=== PATIENT | female | born 1990 | race Caucasian/White ===

== ENCOUNTER → 2025-05-31 13:55 | Outpatient (BNVA) | payer MEDICAID, SELFPAY | PROVIDERS: Visit Provider Internal Medicine | DX: F12.90 Cannabis use, unspecified, uncomplicated (principal); F15.90 Other stimulant use, unspecified, uncomplicated; F11.90 Opioid use, unspecified, uncomplicated; Z51.81 Encounter for therapeutic drug level monitoring; Z79.899 Other long term (current) drug therapy | CPT/HCPCS: 80307 ==

== ENCOUNTER → 2025-05-31 13:55 | Outpatient (AMB) | payer MEDICAID, SELFPAY ==
--- OUTSIDE RECORDS SUMMARY | 2016-11-26 09:36 | XMS_ITS | Continuity of Care Document ---
Author Organization [facility] Address [address] [place] [address] Phone Care Team Providers Care Forensic Anthropologist Name Role Phone Unavailable Unavailable Unavailable Allergies, Adverse Reactions, Alerts Substance Reaction Status Criticality No Known Allergies Resolved No Inform ation Problems Condition Type Effective Dates (start - stop) Clini brissa Status Comments No Known Problems Procedures Procedure Date Psychotherapy, 30 Minutes With Patient J OFFICE/OUTPATIENT VISIT, EST OFFICE/OUTPATIENT VISIT, EST GLOBAL VISIT GLOBAL VISIT HIV TEST REFUSED OFFICE/OUTPATIENT VISIT, EST GLOBAL VISIT URINE TEST OFFICE/OUTPATIENT VISIT, NEW Advance Directives Directive Yes / No Effective Date File Name No Information Encounters Encounter Description Practice Location Reason(s) For Visit Diagnoses Date Provider Providers Copied on Encounter [facility], [address] [place] [address], [facility], tel:[phone] [facility] Behavioral Health Behavioral Health Disposition (chief complaint) No Information 7 No Information Psychotherap y, 30 Minutes With Patient [facility], [address] [place] [address], [facility], tel:[phone] [facility] Behavioral Health Consult/ Engagement into treatment (chief complaint) Opioid use, unspecified, uncomplicated Alcohol abuse, uncomplicated Anxiety disorder, unspecifiedAd justment disorder with depressed mood 7 No Information OFF[place] [facility] [address] [place] [address], [address], [place] tel:[phone] [facility] Adult Medicine drug screen (chief complaint) Routine medical examBody mass index (BMI) 27.0-27.9, adult 7 No Information OFFICE/OUTPA [place]ENT [place], [facility] [address] [place], [address], [place] tel:[phone] [facility] Adult Medicine Establish of Care (chief complaint) Body mass index (BMI) 28.0-28.9, adultHepatiti s C virus infection, unspecified chronicityScr eening for lipid disordersAnxi ety disorder, unspecified typeOtitis externa of right ear, unspecified chronicity, unspecified type 6 [facility]. [address] [facility], [id number] [address] [place] [address], [address], [place]. tel:[phone] [facility], [address] [place] [address], [address], [place] tel:[phone] [facility] pnpe (chief complaint) Dietary surveillance and counselingSup ervision of other normal 5 No Information [facility], [address] [place] [address], [address], [place] tel:[phone] [facility] PNR (chief complaint) Supervision of other normal pregnancyDrug abuse in remission 5 No Information OFFICE[place]OUTPA [place], [facility] [address] [place], [address], [place] tel:[phone] [facility] Adult Medicine HEP C (chief complaint) Hepatitis C - 5 No Information [facility], [address] [place], [address], [place] tel:[phone] [facility] confirmation (chief complaint) Supervision of other normal pregnancyDrug abuse in remissionHepa titis C 3- 5 No Information OFFICE/OUTPA TIENT VISIT, [facility], [address] [place], [address], [place] tel:[phone] [facility] Test (chief complaint) examination or test, positive resultPregnan t state, incidental 5 No Information Family History Family Member Type Diagnosis Age At Onset Mother Problem (finding) multiple sclerosis Father Problem (finding) hypertension Payers Payer name Insurance type Covered constitution party ID Prashant aguilar(s) AMISHA Luna [id number] Social History Type Description Quantity Date Captured Comments Alcohol Use Details Unknown Caffeine Use Details Unknown Tobacco Use Status Smoking Status No Information Sex Female Sexual Orientation Straight or heterosexual Chief Complaint And Reason For Visit From encounter dated '11/26/2016 13:36'. Behavioral Health Disposition (chief complaint). Description: NS/NC for intake, no contact for over30 days, application INACTIVATED Reason For Referral Reason For Referral No Information Plan Of Treatment Date Type Action Status Goal Tobacco cessation counseling completed Goal Dietary management education , guidance, and counseling completed Goal Dietary management education , guidance, and counseling completed Goal Tobacco cessation counseling completed Goal Lifestyle education regardin g diet completed History Of Present Illness Encounter Date Complaint History Of Prese nt Illness Behavioral Health Disposition NS /NC for intake, no contact for over 30 days, application INACTIVATED Consult/ Engagement into treatdc nt Client presented for consult/ engagement into treatment. drug screen The symptoms beg an on 10/01/2016 and generally lasts 1 Day. The symptoms are reported as being none. The symptoms occur none. The location is general. She was sent from [facility] for a random drug screen. She has no other concerns at this time. Establish of Care 26 year old zurdo marichuy presents to clinic for establishment of care. Pt. states she has a history of anxiety disorder and would like to see [facility] for the management of her disorder.Patient states she was seen by [facility] in [place] from [phone].Patient also states she has a history of Hep C and would like to re-start her therapy. Pt. states she was last treated over a years ago.Pt. has no health complaints today and states she feels in overall good health today.After reviewing her chart it looks like she was last seen by Dr. Gan in 11/2014 for Hep C but never returned to any of her appointments.Pt. states she has a history of heroin abuse but has been clean for the past 6 months per patient. pnpe PNR HEP C Pt has history o f hepatitis C, pt refers that she had a positive antibody testing. Pt is currently at 9 weeks. Pt denies any history of jaundice, hepatic encephalopathy or GI bleeding. Pt has not been treated for hepatitis C. HCV RNA VL is unknown, Pt interested in having information for treatment after if it is necessary confirmation Test LMP was 09/26/19 15. Patient was not taking control pills at or around the time of her LMP. The patient had 2 previous pregnancies. Pertinent negatives include anorexia, bleeding, breast tenderness, constipation, edema, fatigue, fever, headache, heartburn, irritability, nausea, pelvic pain, spotting, urinary difficulty, vaginal discharge, vomiting. Additional information: Presents today as a walk-in to establish care, Unplanned but accepting of , FOB aware, denies any abd pain or VB, currently in rehab at [facility] for substance abuse, clean x 2 monthsRecent diagnosis of Hep C at [facility], no tx initiated. Functional Status Date Functional Assessmen t No Information Instructions Date Instruction Additional Infor dwight Laboratory studies were ordered today. Please go to the lab to have your blood drawn. Related to Routine medical exam Weight monitoring Related to Bod y mass index (BMI) 27.0-27.9, adult Dietary management e ducation, guidance, and counseling Related to Body mass index (BMI) 27.0-27.9, adult Ear drops as prescri bed.Patient should lie with affected ear upward and remain in this position for 60 seconds following application. Related to Otitis externa of right ear, unspecified chronicity, unspecified type You have been referr ed to our behavioral health team. Related to Anxiety disorder, unspecified type Laboratory studies w ere ordered today. Please go to the lab to have your blood drawn. Related to Screening for lipid disorders You have been referr ed to our Hep C clinic.Laboratory studies were ordered today. Please go to the lab to have your blood drawn. Related to Hepatitis C virus infection, unspecified chronicity Dietary management e ducation, guidance, and counseling Related to Body mass index (BMI) 28.0-28.9, adult Weight monitoring Related to Bod y mass index (BMI) 28.0-28.9, adult Lifestyle education regarding di et Related to Dietary surveillance and counseling illicit / recreational drugs use of any medicatio ns (including supplements, vitamins, herbs, OTC drugs) smoking counseling alcohol tobacco (ask, advise , assess, assist and arrange) travel environmental / work hazards influenza vaccine indications for ultrasound exercise sexual activity domestic violence seat belt use childbirth classes / hospital facilities nutrition and weight gain counseling, special diet HIV and other routine t ests toxoplasmosis precau tions (cats / raw meat) risk factors identif ied by history anticipated course of c are -Reviewed precautiosn (avoid NSAIDs, excessive intake caffeine, fish with high mercury content, avoid EtOH, cigs, repetative exposure to cleaning solutions or radiation.)-SAB precautions given Related to Supervision of other normal Assessments Type Assessment Date No Information Patient Care Teams Name Effective Dates (start - stop) Status Members No Information
[2025-05-31 14:12] VITALS: PULSE 105; O2SAT 98; BMI 32.3
--- NOTE | 2025-05-31 14:12 | MHC.OFFVIS ---
Vital Signs 05/31/25 14:12 Height 5 ft 6 in Weight 90.718 kg BMI 32.3 Pulse 105 H Pulse Source Pulse Oximeter Pulse Oximetry (%) 98 Oxygen Delivery Method Room Air Intake Visit Reasons: MAT Intake Allergies No Known Allergies Allergy (Verified 05/31/25 14:13) Physical Exam Vital Signs: Last Vital Signs Pulse 105 H 05/31/25 14:12 Pulse Ox 98 05/31/25 14:12 Oxygen Delivery Method Room Air 05/31/25 14:12 BMI result Body Mass Index 32.3 Results AMB 14 Panel Urine Drug Screen Urine Marijuana (THC) Positive Last Edit by Scar Still CMA on 05/31/25 14:36 Urine Cocaine Negative Last Edit by Scar Still CMA on 05/31/25 14:36 Urine Morphine Negative Last Edit by Scar Still CMA on 05/31/25 14:36 Urine Methamphetamine Negative Last Edit by Sacr Still CMA on 05/31/25 14:36 Urine Amphetamine Positive Last Edit by Scar Still CMA on 05/31/25 14:36 Urine Benzodiazepine Negative Last Edit by Scar Still CMA on 05/31/25 14:36 Urine Barbiturates Negative Last Edit by Scar Still CMA on 05/31/25 14:36 Urine Methadone Negative Last Edit by Scar Still CMA on 05/31/25 14:36 Urine Buprenorphine Positive Last Edit by Scar Still CMA on 05/31/25 14:36 Urine Tricyclic Antidepressant Negative Last Edit by Scar Still CMA on 05/31/25 14:36 Urine MDMA Negative Last Edit by Scar Still CMA on 05/31/25 14:36 Urine Oxycodone Negative Last Edit by Scar Still CMA on 05/31/25 14:36 Urine Phencyclidine Negative Last Edit by Scar Still CMA on 05/31/25 14:36 Urine Propoxyphene Negative Last Edit by Scar Still CMA on 05/31/25 14:36 Assessment & Plan Assessment & Plan Orders: Orders AMB 14 Panel Urine Drug Screen Today Z51.81 - Encounter for therapeutic drug level monitoring Coding
--- OUTSIDE RECORDS SUMMARY | 2025-05-31 14:25 | XMS_ITS | Encounter Summary ---
Author Organization [employer] Address [address] [place] [address] Care Team Providers Care Senior Bioinformatics Scientist Name Role Phone Sharon Shaw PA-C Primary Care Provider [phone] Encounter Details Date Type Department Care Team (Latest Contact Info) Description 04/15/2025 Results Follow-Up [address] [address] Sharon Shaw PA-C [address] [place] [address] [phone] CBC auto differential, Comprehensive Metabolic Panel, Vitamin B12/Folate, Serum Panel, Additional followed-up results: 2 Social History Tobacco Use Types Packs/Day Years Used Date Smoking Tobacco: Every Day Cigarettes 0.5 21.7 Started: 2003 Smokeless Tobacco: Never Alcohol Use Standard Drinks/Week Comments Not Currently 0 (1 standard drink = 0.6 oz pur e alcohol) Alcohol Answer Date Recorded How often do you have a drink containing alcohol ? 1 04/12/2025 How many drinks containing a lcohol do you have on a typical day when you are drinking? 1 04/12/2025 How often do you have six or more drinks on one occasion? 4 04/12/2025 Housing Stability Answer Date Recorded What is your housing situation today? I have yasmine del castillo 04/12/[address] you li ve. Do you have problems with any of the following? None of the above 04/12/2025 Food Insecurity Answer Date Recorded Within the past 12 months, y ou worried that your food would run out before you got money to buy more: Never True 04/12/2025 Within the past 12 months,th e food you bought just didn't last and you didn't have enough money to get more: Never True Transportation Answer Date Recorded In the past 12 months, has l ack of transportation kept you from medical appts, meetings, work or from getting things needed for daily living? No 04/12/2025 Intimate Partner Violence Answer Date R ecorded Within the last year, have y ou been afraid of your partner or ex-partner? 2 04/12/2025 Within the last year, have y ou been humiliated or emotionally abused in other ways by your partner or ex-partner? 2 Within the last year, have y ou been kicked, hit, slapped, or otherwise physically hurt by your partner or ex-partner? 2 04/12/2025 Within the last year, have y ou been raped or forced to have any kind of sexual activity by your partner or ex-partner? 2 04/12/2025 Utilities Answer Date Recorded In the past 12 months, has t he electric, gas, oil or water company threatened to shut off services in your home? No 04/12/2025 Depression Answer Date Recorded Patient Health Questionnaire-2 Score 0 04/12/2025 Internet Access Answer Date Recorded Internet Access Q1 Yes 04/12/2025 Internet Access Q2 Not on file 04/12/2025 Comments No Sex and Gender Information Value Date Recorded Sex Assigned at Female 04/10/2025 2:14 PM EDT Legal Sex Female 2:11 PM EDT Gender Identity Female 04/10/2025 2:14 PM EDT Sexual Orientation Bisexual 04/10/2025 2: 14 PM EDT documented as of this encounter Plan of Treatment Scheduled Orders Name Type Priority Associated Diagnoses Orde r Schedule TSH with Reflex to Free T4 Lab Routine Hypothyroidism, unspecified type Expected: 04/22/2025, Expires: 04/22/2026 Thyroid Peroxidase And Thyroglobulin Antibodies Lab Routine Hypothyroidism, unspecified type Expected: 04/22/2025 (Approximate), Expires: 04/22/2026 documented as of this encounter Visit Diagnoses Diagnosis Hypothyroidism, unspecified type- Primary documented in this encounter Care Teams Senior Bioinformatics Scientist Relationship Specialty Start Date End Date Sharon Shaw PA-C [address] [place] [address] PCP - General Family Medicine 04/10/25 documented as of this encounter
--- OUTSIDE RECORDS SUMMARY | 2025-05-31 14:25 | XMS_ITS | Encounter Summary ---
Author Organization [employer] Address [address] [place] [address] Care Team Providers Care Consultant Name Role Phone Sharon Shaw PA-C Primary Care Provider [phone] Encounter Details Date Type Department Care Team (Late st Contact Info) Description 05/28/[address] [address] Sharon Shaw PA-C [address] [place] [address] Hypothyroidism, unspecified type Social History Tobacco Use Types Packs/Day Years [...] PM EDT documented as of this encounter Miscellaneous Notes * Telephone Encounter - Cindy Pleitez MA - 05/29/2025 8:32 AM EDT RX refill request sent to provider. * Telephone Encounter - Cindy Pleitez MA - 05/29/2025 8:31 AM EDT PCP: Sharon Shaw PA-C Last in-person office visit: 04/17/2025 Sharon Shaw PA-C Lab Results Component Value Date BUN 04/12/2025 CREATININE 0.88 04/12/2025 K 4.2 04/12/2025 TSH 4.88 (H) 04/17/2025 Assessment: [] Protocol passed [] Lab due [] Appointment due Plan: [] Please refill for 30 days [] Lab [] BMP [] TSH [] A1C [] Appointment due: No future appointments. Comments: * Telephone Encounter - Fariba Avina - 05/28/2025 4:54 PM EDT Prescribing Provider: YUDI Andrade Medication Name: levothyroxine (Synthroid) 25 MCG tablet 5 Days or More Supply: Yes Pharmacy: [facility] ([address] [place] [address]) documented in this encounter Plan of Treatment Not on file documented as of this encounter Visit Diagnoses Diagnosis Hypothyroidism, unspecified type documented in this encounter Care Teams Consultant Relationship Specialty Start Date End Date Sharon Shaw PA-C [address] [place] [address] PCP - General Family Medicine 04/10/25 documented as of this encounter
--- OUTSIDE RECORDS SUMMARY | 2025-05-31 14:25 | XMS_ITS | Encounter Summary ---
Author Organization [employer] Address [address] [place] [address] Care Team Providers Care Senior Java Architect Name Role Phone Sharon Shaw PA-C Primary Care Provider [phone] Encounter Details Date Type Department Care Team (Late st Contact Info) Description 05/30/[address] [address] Sharon Shaw PA-C [address] [place] [address] Social History Tobacco Use Types Packs/Day Years [...] Telephone Encounter - Cindy Pleitez MA - 05/30/2025 3:29 PM EDT RX refill request sent to provider. * Telephone Encounter - Cindy Pleitez MA - 05/30/2025 3:28 PM EDT PCP: Sharon Shaw PA-C Last in-person office visit: 04/17/2025 Sharon Shaw PA-C Lab Results Component Value Date BUN 04/12/2025 CREATININE 0.88 04/12/2025 K 4.2 04/12/2025 TSH 4.88 (H) 04/17/2025 Assessment: [x] Protocol passed [] Lab due [] Appointment due Plan: [x] Please refill for 30 days [] Lab [] BMP [] TSH [] A1C [] Appointment due: No future appointments. Comments: * Telephone Encounter - Fariba Avina - 05/30/2025 2:38 PM EDT Prescribing Provider: historical provider Medication Name: Xarelto 20 MG tablet 5 Days or More Supply: No Pharmacy: [facility] ([address] [place] [address]) documented in this encounter Plan of Treatment Not on file documented as of this encounter Visit Diagnoses Not on filedocumented in this encounter Care Teams Senior Java Architect Relationship Specialty Start Date End Date Sharon Shaw PA-C [address] [place] [address] PCP - General Family Medicine 04/10/25 documented as of this encounter
--- OUTSIDE RECORDS SUMMARY | 2025-05-31 14:25 | XMS_ITS | Encounter Summary ---
Author Organization [employer] Address [address] [place] [address] Care Team Providers Care Photofinishing Laboratory Worker Name Role Phone Sharon Shaw PA-C Primary Care Provider [phone] Encounter Details Date Type Department Care Team (Late st Contact Info) Description 04/12/2025 Orders Only [facility] [address] [place], [place] [id number] Provider, Not In System Social History Tobacco Use Types Packs/Day Years [...] PM EDT documented as of this encounter Functional Status * Over the past 2 weeks, how often have you been bothered by any of the following problems? Question Answer Date of Assessment Author Little interest or pleasure in doing things Not at all 04/12/2025 8:09 AM EDT Cindy Pleitez MA Feeling down, depressed, or hopeless Not at all 04/12/2025 8:09 AM EDT Cindy Pleitez MA Patient Health Questionnaire -2 Score 0 04/12/2025 8:09 AM EDT Cindy Pleitez MA documented as of this encounter Plan of Treatment Not on file documented as of this encounter Procedures Procedure Name Priority Date/Time Associated Diagnosis Comments CT HEAD/BRAIN VENOGRAM Routine 03/15/2025 10:10 AM EDT documented in this encounter Results * CT HEAD/BRAIN VENOGRAM (03/15/2025 10:10 AM EDT) Anatomical Region Laterality Modality Computed Tomogra phy us Not In System Provider IMG CT PROCEDURES Edited Result - Final documented in this encounter Visit Diagnoses Not on filedocumented in this encounter Care Teams Photofinishing Laboratory Worker Relationship Specialty Start Date End Date Sharon Shaw PA-C [address] [place] [address] PCP - General Family Medicine 04/10/25 documented as of this encounter
--- OUTSIDE RECORDS SUMMARY | 2025-05-31 14:25 | XMS_ITS | Clinical Summary ---
Author Organization [facility] Address [address] [facility] [place] [address] Care Team Providers Care Risk And Insurance Consultant Name Role Phone Sharon Shaw PA-C Primary Care Provider [phone] Allergies No known active allergies Medications Adderall XR 20 MG 24 hr capsule Take 20 mg by mouth in the morning. 03/18/20 25 Active Suboxone 8-2 MG SL film 04/01/20 25 Active predniSONE (Deltasone) 20 MG tablet 04/04/20 25 Active lamoTRIgine (LaMICtal) 100 MG tablet Take 100 mg by mouth 2 times daily. 04/08/20 25 Active topiramate 50 MG tablet Take 50 mg by mouth 2 times daily. 03/25/20 25 Active citalopram (CeleXA) 20 MG tablet Take 30 mg by mouth Once per day. 04/08/20 25 Active prazosin (Minipress) 1 MG capsule Take 2 mg by mouth at bedtime. 04/08/20 25 Active QUEtiapine (SEROquel) 25 MG tablet Take 75 mg by mouth at bedtime. 03/18/20 25 Active senna (Senokot) 8.6 MG tablet Take 2 tablets by mouth if needed at bedtime. 03/25/20 25 Active melatonin 5 MG tablet Take 5 mg by mouth if needed at bedtime. 04/01/20 25 Active hydrOXYzine HCl (Atarax) 25 MG tablet 04/02/20 25 Active polyethylene glycol, PEG, 3350 (Glycolax) 17 GM/SCOOP powder Take 17 g by mouth if needed each day. 03/25/20 25 Active fluticasone (Flonase) 50 MCG/ACT nasal spray Administer 1 spray into each nostril if needed each day for allergies. 03/26/20 25 Active acetaminophen (Tylenol) 325 MG tablet Take 650 mg by mouth every 4 (four) hours if needed for mild pain. 04/01/20 25 Active nicotine polacrilex (Commit) 2 MG lozenge Dissolve 1 lozenge in the mouth every 1 (one) hour if needed for smoking cessation. 04/10/20 25 Active docusate sodium (Colace) 100 MG capsule Take 1 capsule by mouth if needed in the morning and at bedtime for constipation. 01/25/20 25 Active naloxone (Narcan) 4 mg/0.1 mL nasal spray Administer 1 each into affected nostril(s) if needed for opioid reversal or respiratory depression. 01/12/20 25 Active nicotine (Nicoderm, Step 1) 21 MG/24HR patch Place 1 patch on the skin 1 (one) time each day at the same time. 04/01/20 25 Active gabapentin (Neurontin) 300 MG capsule Take 300 mg by mouth Once per day. 04/11/20 25 Active QUEtiapine (SEROquel) 50 MG tablet Take 50 mg by mouth in the morning and 50 mg at noon and 50 mg in the evening. Active QUEtiapine (SEROquel) 100 MG tablet Take 100 mg by mouth in the morning and 100 mg at noon and 100 mg in the evening. Active Multiple Vitamins-Haines als (Womens Multivitamin) tablet Take 1 tablet by mouth Once per day. Active ketoconazole (NIZOral) 2 % shampooIndicat ions:Rash Apply topically 2 (two) times a week. 120 mL 1 04/15/20 25 Active levothyroxine (Synthroid) 25 MCG tabletIndicati ons:Hypothyroi dism, unspecified type Take 1 tablet (25 mcg) by mouth before breakfast. Dose depends on labs--may continue for now, please come get labs rechecked as discussed with PCP at visit. 30 tablet 05/29/20 25 025 Active Xarelto 20 MG tablet Take 1 tablet (20 mg) by mouth with evening meal. 90 tablet 05/30/20 25 025 Active Xarelto 20 MG tablet Take 20 mg by mouth with evening meal. 04/08/20 25 09/04/2 025 Discontinued(R eorder (will not trigger notification to Pharmacy)) clotrimazole (Lotrimin) 1 % creamIndicatio ns:Rash Apply topically 2 times daily for 28 days. 30 g 2 04/12/20 25 025 levothyroxine (Synthroid) 25 MCG tabletIndicati ons:Hypothyroi dism, unspecified type Take 1 tablet (25 mcg) by mouth before breakfast. 30 tablet 11 04/22/20 25 025 Discontinued(R eorder (will not trigger notification to Pharmacy)) Active Problems Problem Noted Date Diagnosed Date Alcohol use disorder 04/12/2025 Assessment & Plan (04/12/2025 10:35 AM EDT): - History of alcohol use disorder with recent sobriety. In treatment program. - Monitor sobriety progress. Stimulant use disorder 04/12/2025 Assessment & Plan (04/12/2025 10:35 AM EDT): - History of stimulant use disorder, currently in recovery. In treatment program. - Continue monitoring recovery progress. History of opioid abuse 04/12/2025 Assessment & Plan (04/12/2025 10:35 AM EDT): - History of opioid abuse, currently on suboxone. In treatment program. - Continue suboxone treatment. Encounters Date Type Department Care Team Description 05/30/[address] [phone] Sharon Shaw PA-C 05/28/[address] [phone] Sharon Shaw PA-C Hypothyroidism, unspecified type 05/06/[address] [phone] Sharon Shaw PA-C 04/17/2025 9:40 AM EDT Office Visit [address] [address] [place], Sharon, PA-C Itching in the vaginal area (Primary Dx); Dysuria; History of blood clots 04/15/2025 Results Follow-Up [address] [address] Sharon Shaw PA-C CBC auto differential, Comprehensive Metabolic Panel, Vitamin B12/Folate, Serum Panel, Additional followed-up results: 2 04/12/2025 8:00 AM EDT Office Visit [address] [phone] Sharon Shaw PA-C Alcohol use disorder (Primary Dx); Stimulant use disorder; History of opioid abuse (CMS/HCC); Rash; Hair loss; Encounter to establish care; Screening for depression 04/12/2025 Orders Only [facility] [address] [place] [phone] Provider, Not In System 04/12/[address] [phone] Sharon Shaw PA-C from Last 3 Months Social History Tobacco Use Types Packs/Day Years Used Date Smoking Tobacco: Every Day Cigarettes 0.5 21.7 Started: 2003 Smokeless Tobacco: Never Tobacco Cessation:Ready to Q uit: Not Asked; Counseling Given: Not Answered Alcohol Use Standard Drinks/Week Comments Not Currently [...] Q2 Not on file 04/12/2025 Comments No Intention Date Recorded No desire to become (finding) 0 04/12/2025 Sex and Gender Information Value Date Recorded Sex Assigned at Female 04/10/2025 2:14 PM EDT Legal Sex Female 2:11 PM EDT Gender Identity Female 04/10/2025 2:14 PM EDT Sexual Orientation Bisexual 04/10/2025 2: 14 PM EDT Last Filed Vital Signs Vital Sign Reading Time Taken Comments Blood Pressure 112/70 04/17/2025 9:52 AM EDT Pulse 82 04/17/2025 9:52 AM EDT Temperature - - Respiratory Rate - - Oxygen Saturation 98% 04/17/2025 9:52 AM EDT Inhaled Oxygen Concentration - - Weight 88.7 kg (195 lb 8 oz) 04/12/2025 8:02 AM EDT Height 167.6 cm (5' 6 ) 04/12/2025 8:02 AM EDT Body Mass Index 31.55 04/12/2025 8:02 AM EDT Plan of Treatment Health Maintenance Due Date Last Done Comments Dental Oral Exam 1991 Dental Prophylaxis 1991 Dental X-Ray: Bitewings 1991 Dental X-Ray: Full Mouth 1991 HIV Screening 1991 Lipid Panel 1991 Disability Screening 1991 HPV Vaccines (1 - 3-dose series) 2006 Hepatitis C Screening 2009 DTaP/Tdap/Td Vaccines (1 - Tdap) 2010 Hepatitis B Vaccines (1 of 3 - 19+ 3-dose series) 2010 Pneumococcal Vaccine: Pediatrics (0 to 5 Years) and At-Risk Patients (6 to 49) Years (1 of 2 - PCV) 2010 Pap Smear 2012 Cervical Cancer Screening 2021 HPV/Cotest 2021 COVID-19 Vaccine (1 - 2023-2 5 season) 2025 Influenza Vaccine (#1) 2025 Alcohol/Substance Use Screening 04/12/2026 04/12/2025 Depression Screening 04/12/2026 04/12/2025, 04/12/2025 Family Planning (PISQ) 04/12/2026 04/12/2025 SDOH Screening 04/12/2026 04/12/2025 Tobacco Screening 04/17/2026 04/17/2025 Zoster Vaccines (1 of 2) 2041 RSV Patients and Patients Aged 60 years or older (1 - 1-dose 75+ series) 2066 HIB Vaccines Aged Out No longer eligi ble based on patient's age to complete this topic Hepatitis A Vaccines Aged Out No long er eligible based on patient's age to complete this topic IPV Vaccines Aged Out No longer eligi ble based on patient's age to complete this topic Meningococcal B Vaccine Aged Out No l onger eligible based on patient's age to complete this topic Meningococcal Vaccine Aged Out No hina jerry eligible based on patient's age to complete this topic RSV under 20 months Aged Out No longe r eligible based on patient's age to complete this topic Rotavirus Vaccines Aged Out No longer eligible based on patient's age to complete this topic Procedures Procedure Name Priority Date/Time Associated Diagnosis Comments T4, FREE Routine 04/17/2025 10:17 AM EDT TSH W/REFLEX TO FT4 Routine 04/17/2025 1 0:17 AM EDT Hair loss POCT URINALYSIS DIPSTICK Routine 04/17/2025 10:16 AM EDT Itching in the vaginal area SURESWAB(R) ADVANCED VAGINITIS PLUS, TMA Routine 04/17/2025 10:00 AM EDT Itching in the vaginal area CULTURE, URINE, ROUTINE Routine 04/17/2025 10:00 AM EDT Dysuria Itching in the vaginal area COMPREHENSIVE METABOLIC PANEL Routine 04/12/2025 8:42 AM EDT Rash CBC WITH AUTO DIFFERENTIAL Routine 04/12/2025 8:42 AM EDT Rash VITAMIN B12/FOLATE, SERUM PANEL Routine 04/12/2025 8:41 AM EDT Alcohol use disorder Rash CT HEAD/BRAIN VENOGRAM Routine 10:10 AM EDT from Last 3 Months Results * (ABNORMAL) TSH with Reflex to Free T4 (04/17/2025 10:17 AM EDT) TSH w/Reflex to FT4 4.88(H) mIU/L [facility] Comment: Reference Range > or = 20 Years 0.40-4.50 Ranges First trimester 0.26-2.66 Second trimester 0.55-2.73 Third trimester 0.43-2.91 Blood Venous blood specimen / Unknown 04/17/2025 10:17 AM EDT 04/17/2025 10:18 AM EDT Narrative [facility] - 04/18/2025 6:56 PM EDT FASTING:NO FASTING: NO us Sharon Shaw PA-C LAB BLOOD ORDERABLES Final Re sult [facility] [address], [place] [address] [facility] [address] [place] [address] * (ABNORMAL) T4, Free (04/17/2025 10:17 AM EDT) T4, Free 0.7(L) 0.8 - 1.8 ng/dL [facility] 04/17/2025 10:1 7 AM EDT 04/17/2025 10:18 AM EDT Narrative [facility] - 04/18/2025 6:56 PM EDT FASTING:NO FASTING: NO us Sharon Shaw PA-C LAB BLOOD ORDERABLES Final Re sult Performing Organization Address [facility] de Phone Number [address], [place] [address] [facility] [place] [facility] [address] [place] [address] * POCT urinalysis dipstick manually resulted (04/17/2025 10:16 AM EDT) Pathologist [facility] Color, UA Yellow Clarity, UA Clear Glucose, UA Negative Bilirubin, UA 1+ 70+ Ketones, UA Negative Spec Grav, UA 1.020 Blood, UA Negative Negative, None Detected pH, UA 6.0 Protein, UA Few 15 Urobilinogen, UA 0.2 Leukocytes, UA Negative Negative, Rare, Trace Nitrite, UA Negative Negative, None Detected Urine 04/17/2025 10:1 6 AM EDT us Sharon Shaw PA-C POINT OF CARE TEST ENTER/EDIT ORDERABLES Final Result * SureSwab?? Advanced Vaginitis Plus, TMA (04/17/2025 10:00 AM EDT) Sure[facility]ab 9R) ADV Bacterial Vaginosis (BV), TMA NEGATIVE NEGATIVE [facility] Melody Species NOT DETECTED NOT DETECTED [facility] Melody glabrata NOT DETECTED NOT DETECTED [facility] Comment: Melody species C. albicans, C. tropicalis, C. parapsilosis, and/or C. dubliniensis can be detected, but not differentiated, in the Melody spp. result. Trichomonas vaginalis (TV), TMA NOT DETECTED NOT DETECTED [facility] [place] [facility] Chlamydia trachomatis RNA, TMA, Urogenital NOT DETECTED NOT DETECTED [facility] [place] [facility] Neisseria gonorrhoeae RNA, TMA, Urogenital NOT DETECTED NOT DETECTED [facility] [place] [facility] Comment: For additional information, please refer to https://education.[employer]/faq/AWJ178 (This link is being provided for information/ educational purposes only.) Swab Vaginal structure / Unknown 04/17/2025 10:00 AM EDT 04/17/2025 10:35 AM EDT Sharon Shaw PA-C LAB BODY FLUIDS AND STOOLS OR DERABLES Final Result Performing Organization Address [facility] de Phone Number [facility] [address], [place] [address] [facility] [place] [facility] [address] [place] [address] * Culture, Urine, Routine (04/17/2025 10:00 AM EDT) Culture, Urine, Routine SEE NOTE [facility] [place] [facility] Comment: CULTURE, URINE, ROUTINE Micro Number: [id number] Test Status: Final Specimen Source: Urine Specimen Quality: Adequate Result: Mixed genital nahomi isolated. These superficial bacteria are not indicative of a urinary tract infection. No further organism identification is warranted on this specimen. If clinically indicated, recollect clean-catch, mid-stream urine and transfer immediately to Urine Culture Transport Tube. Urine Urine specimen obtained by clean catch procedure / Unknown 04/17/2025 10:00 AM EDT 04/17/2025 10:35 AM EDT us Sharon Shaw PA-C LAB MICROBIOLOGY - GENERAL OR DERABLES Final Result Performing Organization Address [facility]/State/ZIP Co de Phone Number [facility] [address] [facility] [place] [address] [facility] [place] [facility] [address] [place] [address] * (ABNORMAL) CBC auto differential (04/12/2025 8:42 AM EDT) White Blood Cell Count 10.1 3.8 - 10.8 Thousand/ uL [facility] Red Blood Cell Count 4.39 3.80 - 5.10 Million/u L [facility] Hemoglobin 13.1 11.7 - 15.5 g/dL [facility] Hematocrit 40.0 35.0 - 45.0 % [facility] MCV 91.1 80.0 - 100.0 fL [facility] MCH 29.8 27.0 - 33.0 pg [facility] MCHC 32.8 32.0 - 36.0 g/dL [facility] Comment: For adults, a slight decrease in the calculated MCHC value (in the range of 30 to 32 g/dL) is most likely not clinically significant; however, it should be interpreted with caution in correlation with other red cell parameters and the patient's clinical condition. RDW 13.0 11.0 - 15.0 % [facility] Platelet Count 398 140 - 400 Thousand/ uL [facility] MPV 9.2 7.5 - 12.5 fL [facility] Absolute Neutrophils 7,737 1,500 - 7,800 cells/uL [facility] Absolute Lymphocytes 1,798 850 - 3,900 cells/uL [facility] Absolute Monocytes 535 200 - 950 cells/uL [facility] Absolute Eosinophils 10(L) 15 - 500 cells/uL [facility] Basophils 20 0 - 200 cells/uL [facility] Neutrophils 76.6 % [facility] Lymphocytes 17.8 % [facility] Monocytes 5.3 % [facility] [place] [facility] Eosinophils 0.1 % [facility] [place] [facility] Basophils 0.2 % [facility] Blood Venous blood specimen / Unknown 04/12/2025 8:42 AM EDT 04/12/2025 8:42 AM EDT Sharon Shaw PA-C LAB BLOOD ORDERABLES Final Re sult [facility] [address], [place] [address] [facility] [address] [place] [address] * (ABNORMAL) Comprehensive Metabolic Panel (04/12/2025 8:42 AM EDT) Glucose 121(H) 65 - 99 mg/dL [facility] Comment: Fasting reference interval For someone without known diabetes, a glucose value between 100 and 125 mg/dL is consistent with prediabetes and should be confirmed with a follow-up test. Urea Nitrogen (BUN) 14 7 - 25 mg/dL [facility] Creatinine, Serum 0.88 0.50 - 0.97 mg/dL [facility] eGFR 89 > OR = 60 mL/min/1. 73m2 [facility] BUN/Creatinine Ratio SEE NOTE: 6 - 22 (calc) [facility] Comment: Not Reported: BUN and Creatinine are within reference range. Sodium 136 135 - 146 mmol/L [facility] Potassium 4.2 3.5 - 5.3 mmol/L [facility] [place] [facility] Chloride 103 98 - 110 mmol/L [facility] Carbon Dioxide 24 20 - 32 mmol/L [facility] Calcium 9.6 8.6 - 10.2 mg/dL [facility] Protein, Total 7.3 6.1 - 8.1 g/dL [facility] Albumin 4.7 3.6 - 5.1 g/dL [facility] Globulin 2.6 1.9 - 3.7 g/dL (calc) [facility] [place] [facility] Albumin/Globuli n Ratio 1.8 1.0 - 2.5 (calc) [facility] Bilirubin, Total 0.2 0.2 - 1.2 mg/dL [facility] Alkaline Phosphatase 110 31 - 125 U/L [facility] AST 10 10 - 30 U/L [facility] ALT 11 6 - 29 U/L [facility] [place] [facility] Blood Venous blood specimen / Unknown 04/12/2025 8:42 AM EDT 04/12/2025 8:42 AM EDT Sharon Shaw PA-C LAB BLOOD ORDERABLES Final Re sult Performing Organization Address [facility] de Phone Number [facility] [address], [place] [address] [facility] [place] [facility] [address] [place] [address] * Vitamin B12/Folate, Serum Panel (04/12/2025 8:41 AM EDT) [facility] Vitamin B12 353 200 - 1,100 pg/mL [facility] [place] [facility] Comment: Please Note: Although the reference range for vitamin B12 is 200-1100 pg/mL, it has been reported that between 5 and 10% of patients with values between 200 and 400 pg/mL may experience neuropsychiatric and hematologic abnormalities due to occult B12 deficiency; less than 1% of patients with values above 400 pg/mL will have symptoms. Folate, Serum >24.0 ng/mL [facility] [place] [facility] Comment: Reference Range Low: <3.4 Borderline: 3.4-5.4 Normal: >5.4 Blood Venous blood specimen / Unknown 04/12/2025 8:41 AM EDT 04/12/2025 8:41 AM EDT Sharon Shaw PA-C LAB BLOOD ORDERABLES Final Re sult Performing Organization Address [facility] de Phone Number [address], [place] [address] [facility] [address] [place] [address] * CT HEAD/BRAIN VENOGRAM (03/15/2025 10:10 AM EDT) Anatomical Region Laterality Modality Computed Tomogra phy us Not In System Provider IMG CT PROCEDURES Edited Result - Final from Last 3 Months Insurance [facility] [id number] [facility] STAND ADULT DENTAL - HSN FULL (MEDICAID) Care Teams Risk And Insurance Consultant Relationship Specialty Start Date End Date Sharon Shaw PA-C [address] [place] [id number] PCP - General Family Medicine 04/10/25
== END ==
LOC: HO.HCC 13:56
PROVIDERS: Visit Provider Internal Medicine
DX: Z51.81 Encounter for therapeutic drug level monitoring (principal)